=== PATIENT | female | born 1995 | race Hispanic/Latino ===

== ENCOUNTER 2017-07-12 06:47 | Inpatient (IN) | payer MEDICAID, OTHER, SELFPAY ==
[2017-07-17] MEDS: Lactated Ringer's 1,000 ML IV SCH (23:05)
[2017-07-17 23:16] VITALS: BMI 27.4
[2017-07-18] MEDS ORDERED: Acetaminophen 500 MG TAB PO PRN (00:06)
[2017-07-18] MEDS ORDERED: Ibuprofen 800 MG TAB PO PRN (00:06)
[2017-07-18] MEDS ORDERED: Lidocaine 1% (PF) 30 ML VIAL SC PRN (00:06)
[2017-07-18] MEDS ORDERED: Carboprost 250 MCG/ML AMP IM PRN (00:06)
[2017-07-18] MEDS ORDERED: Misoprostol 200 MCG TAB PR PRN (00:06)
[2017-07-18] MEDS ORDERED: Methylergonovine 0.2 MG/ML VIAL IM PRN (00:06)
[2017-07-18] MEDS ORDERED: Ondansetron HCl/PF 4 MG/2 ML Vial IVP PRN (00:06)
[2017-07-18] MEDS ORDERED: Promethazine HCl 25 MG/ML VIAL IM PRN (00:06)
[2017-07-18] MEDS ORDERED: LR / Pitocin 40 units/1000 ml 1,000 ML IV PRN (00:06)
[2017-07-18] MEDS ORDERED: Diphenoxylate HCl/Atropine Tablet PO PRN (00:06)
[2017-07-18] MEDS: LR 500 ML/Oxytocin 10 units 500 ML IV SCH ×2 (00:40→10:41)
--- NOTE | 2017-07-18 00:40 | PDOC.LDHP ---
Labor and Delivery H&P Chief complaint: scheduled induction HPI: 22 yo @ 40.6wks by a 10wk US presents for IOL 2/2 post dates. She is complaining of irregular contractions, otherwise denies vaginal bleeding, fluid loss, new discharge. Current gestational age (weeks): 40 (40.6) Due date: 07/12/17 Dating criteria: first trimester ultrasound (10wks) Grav: 4 Para: 1 (1021) OB History Details: Prior delivery , no complications, did require pitocin hx of 2 spontaneous abortions Current complications: other (anemia of ) Abnormal US findings: No Past Medical History: none Current medications: pre-fredis vitamins, iron Previous surgical history: none Social history: none - Physical Exam Vital signs reviewed and normal: yes General: NAD, resting Heart: RRR Lungs: CTAB Abdomen: gravid Extremeties: no edema FHT: category 1 (accels present) [place] contractions every: 4-5 minutes - Vaginal Exam cm dilated: 3 Effacement: 75% Station: -3 - OB Labs HIV: negative RPR: negative 1 hour GCT: positive 3 hour GTT: negative GBS: negative - Assessment L&D Assessment: medically indicated induction - Plan Plan: admit to L&D -: 22 yo @ 40.6wks by a 10wk US presents to L&D for IOL 2/2 postdates, admitted for induction with pitocin (queen score of 6). Plan: 1.)IOL 2/2 postdates-We will admit Mrs. Orozco to L&D and start pitocin and titrate as tolerated. We will do serial labor checks. We will also order a cbc, hepatitis B antigen, Rubella, and blood type and antibody. 2.)sIUP-same as above 3.)Anemia of -continue iron PO. Allergies/Adverse Reactions: Allergies Allergy/AdvReac Type Severity Reaction Status Date / Time No Known Allergies Allergy Unverified 07/18/17 00:14
[2017-07-18 01:41] LABS: Hemoglobin 12.2 g/dL (12.0-16.0); Mean Corpuscular HGB CONC 35.8 g/dL (32.0-36.0); Mean Corpuscular Hemoglobin 31.7 pg (27.0-31.0); Mean Corpuscular Volume 88.4 fl (81.0-99.0); Mean Platelet Volume 9.4 fL (7.4-10.4); Platelet Count 187 thou/uL (130-400); RBC Distribution Width 13.6 % (11.5-14.5); Red Blood Cell (RBC) Count 3.84 mill/uL (4.20-5.40); White Blood Cell (WBC) Count 7.6 thou/uL (4.8-10.8)
[2017-07-18 02:07] LABS: HBSAg Index 0.48 S/CO (0-0.99); Hep B Surf Ag Non-Reactive S/CO (NonReactive)
--- NOTE | 2017-07-18 03:11 | PDOC.LDPN ---
Labor & Delivery Progress Note - Subjective Subjective: comfortable, other (22 yo @ 41 wks here for IOL 2/2 to post dates.) - Objective Vital signs reviewed and normal: yes General: NAD, resting SVE: 4 Effacement: 75% Station: -3 FHT: category 1 (+accels) [place] contractions every: 2 minutes - Assessment (1) Encounter for induction of labor Code(s): Z34.90 - ENCNTR FOR SUPRVSN OF NORMAL , UNSP, UNSP TRIMESTER Current Visit: Yes Status: Acute (2) Post-dates Code(s): O48.0 - POST-TERM Current Visit: Yes Status: Acute Plan: continue plan of care, pitocin for augmentation, other (Continue labor checks q2h. Continue pitocin, titrate as tolerable.)
[2017-07-18 05:24] LABS: Syphilis Antibody Nonreactive (Nonreactive); Syphilis Antibody Index 0.03 S/CO (<1.00 Non-Reactive)
[2017-07-18] MEDS: Lactated Ringer's 1,000 ML IV SCH (06:36)
--- NOTE | 2017-07-18 08:18 | PDOC.LDPN ---
Labor & Delivery Progress Note - Subjective Subjective: painful contractions - Objective Vital signs reviewed and normal: yes General: resting, breathing through contractions Uterine fundus: non tender Dilation: 4 Effacement: 75% Station: -3 FHT: category 1, variability present, absent or minimal variables [place] contractions every: 2-3 - Assessment (1) Encounter for induction of labor Code(s): Z34.90 - ENCNTR FOR SUPRVSN OF NORMAL , UNSP, UNSP TRIMESTER Current Visit: Yes Status: Acute Comment: Continue IOL -Cat 1 strip -Pitocin currently at 20 -Membranes intact, consider AROM at next check if no progress is made -Pt does not currently want medication for pain control (2) Post-dates Code(s): O48.0 - POST-TERM Current Visit: Yes Status: Acute Comment: Continue induction as above Plan: labor augmentation, pitocin for augmentation <Ludwig Hernandez - Last Filed: 07/18/17 08:15> Attending Addendum - Attending Addendum Date/Time: 07/18/171827 I personally evaluated the patient and discussed the management with Dr. Hernandez I agree with the History, Examination, Assessment and Plan documented above with any addition or exceptions noted below. Will AROM at next SVE and place IUPC. Delilah <Ashlyn Zaragoza - Last Filed: 07/18/17 18:30>
[2017-07-18] MEDS ORDERED: Fentanyl 100 MCG/2 ML VIAL ONE (12:43)
[2017-07-18] MEDS ORDERED: Fentanyl 100 MCG/2 ML VIAL SLOW IVP SCH (14:30)
[2017-07-18] MEDS ORDERED: Adacel (T-DAP) 0.5 ML VIAL IM ONE (16:21)
[2017-07-18] MEDS ORDERED: Bisacodyl 10 MG SUPP PR PRN (16:21)
[2017-07-18] MEDS ORDERED: LR / Pitocin 40 units/1000 ml 1,000 ML IV SCH (16:21)
[2017-07-18] MEDS ORDERED: Acetaminophen/Codeine 30-300mg Tablet PO PRN (16:21)
[2017-07-18] MEDS ORDERED: Benzocaine/Menthol 20-0.5% 60 ML CAN TOP PRN (16:21)
[2017-07-18] MEDS ORDERED: Lanolin Ointment 7 GM TUBE TOP PRN (16:21)
[2017-07-18] MEDS ORDERED: Milk Of Magnesia 30 ML UDCUP PO PRN (16:21)
[2017-07-18] MEDS: Ferrous Sulfate 325 MG TAB PO SCH (16:55)
[2017-07-18] MEDS ORDERED: FLU VACC QS2017-18 36 mo. & older 0.5 ML SYRINGE IM ONE (17:45)
--- NOTE | 2017-07-18 18:34 | PDOC.LDPN ---
Labor & Delivery Progress Note - Subjective Subjective: painful contractions (breathing through) - Objective Vital signs reviewed and normal: yes General: breathing through contractions Uterine fundus: palpable contractions Dilation: 6 Effacement: 90% Station: -1 FHT: category 1 [place] contractions every: q 2 min Procedures: AROM with IUPC and FSE placement ( bradycardia with rupture) AROM: clear fluid IUPC placed: yes FSE placed: yes Resuscitative measures: maternal position change ( bradycardia resolved with stimulation and maternal position change) - Assessment (1) Encounter for induction of labor Code(s): Z34.90 - ENCNTR FOR SUPRVSN OF NORMAL , UNSP, UNSP TRIMESTER Current Visit: Yes Status: Acute Comment: 22 yo female at 40.6 wks here for an elective IOL. AROM with IUPC and FSE placement. Continue pitocin per protocol. Expecting vaginal delivery soon. (2) Glucose intolerance of Code(s): O99.810 - ABNORMAL GLUCOSE COMPLICATING Current Visit: Yes Status: Acute Comment: Failed 1 hour gtt. Possible LGA infant. Wt gain for less than 20 lbs. Plan: continue plan of care, pitocin for augmentation -: Delilah
[2017-07-18] MEDS: Ibuprofen 800 MG TAB PO SCH (18:49)
[2017-07-18] MEDS: Docusate Calcium (SURFAK) 240 MG CAP PO SCH (22:25)
[2017-07-19] MEDS: Lactated Ringer's 1,000 ML IV SCH (01:46)
[2017-07-19] MEDS: Ibuprofen 800 MG TAB PO SCH ×5 (02:30→21:10)
[2017-07-19 05:45] LABS: Hemoglobin 8.2 g/dL (12.0-16.0); Mean Corpuscular HGB CONC 34.2 g/dL (32.0-36.0); Mean Corpuscular Hemoglobin 30.8 pg (27.0-31.0); Mean Corpuscular Volume 89.9 fl (81.0-99.0); Mean Platelet Volume 8.6 fL (7.4-10.4); Platelet Count 135 thou/uL (130-400); RBC Distribution Width 13.3 % (11.5-14.5); Red Blood Cell (RBC) Count 2.67 mill/uL (4.20-5.40); White Blood Cell (WBC) Count 10.4 thou/uL (4.8-10.8)
--- NOTE | 2017-07-19 07:10 | PDOC.PP ---
Post Progress Note Post Day #: 1 Subjective: 22 yo delivered at 40.6 via complicated by 2nd deg perineal lac and PPH (EBL 1000mL). Pt states that she feels well today. She denies dizziness/ lightheadedness. Her bleeding is similar to a menstrual cycle. She denies abdominal pain or breast pain. PO intake tolerated: yes Flatus: no Ambulation: yes Vital Signs (12 hours) Temp Pulse Resp BP Pulse Ox 07/19/17 04:30 98.4 F 78 18 101/53 L 07/18/17 23:55 97.9 F 70 18 107/51 L 07/18/17 20:27 98.7 F 68 18 109/52 L 98 Weight Weight 72.575 kg - Physical Examination General: NAD Cardiovascular: no m/r/g, RRR Respiratory: clear to auscultation bilaterally, non-labored breathing Abdominal: + bowel sounds, lochia, no distention, appropriately TTP Fundus firm & at: U -3 Extremities: negative homans (B) Neurological: no gross focal deficits Psychiatric: A&Ox3, normal affect Result Diagrams: 07/19/17 05:20 Additional Labs: Post Labs Blood Type O POSITIVE 07/17/17 23:05 Hep Bs Antigen Non-Reactive S/CO (NonReactive) 07/17/17 23:05 (1) Term delivered Code(s): O80 - ENCOUNTER FOR FULL-TERM UNCOMPLICATED DELIVERY Status: Acute Comment: Pt doing well overall. Her Hb this morning is 8.2 which is not unexpected given PPH and IVF post . Pt had one PP check yesterday evening with moderate blood loss, however it has been scant since. Continue to monitor vitals and Hb in the am. Otherwise routine post care (2) Encounter for induction of labor Code(s): Z34.90 - ENCNTR FOR SUPRVSN OF NORMAL , UNSP, UNSP TRIMESTER Status: Resolved (3) Post-dates Code(s): O48.0 - POST-TERM Status: Resolved <Ludwig Hernandez - Last Filed: 07/19/17 07:12> Vital Signs (12 hours) Temp Pulse Resp BP 07/19/17 11:49 98.2 F 85 16 114/57 L 07/19/17 08:00 97.7 F 77 18 105/51 L 07/19/17 04:30 98.4 F 78 18 101/53 L Weight Weight 72.575 kg Result Diagrams: 07/19/17 05:20 Additional Labs: Post Labs Blood Type O POSITIVE 07/17/17 23:05 Hep Bs Antigen Non-Reactive S/CO (NonReactive) 07/17/17 23:05 Rubella IgG Antibody 1.56 index (Immune >0.99) 07/17/17 23:05 (1) Encounter for induction of labor Code(s): Z34.90 - ENCNTR FOR SUPRVSN OF NORMAL , UNSP, UNSP TRIMESTER Status: Resolved (2) Glucose intolerance of Code(s): O99.810 - ABNORMAL GLUCOSE COMPLICATING Status: Acute Comment: Failed 1 hour gtt. Possible LGA infant. Wt gain for less than 20 lbs. <Ashlyn Zaragoza - Last Filed: 07/19/17 15:29> Attending Addendum - Attending Addendum Date/Time: 07/19/17 4630 I personally evaluated the patient and discussed the management with Dr. Hernandez I agree with the History, Examination, Assessment and Plan documented above with any addition or exceptions noted below. 22 yo female s/p on 07/18/17 complicated by PPH PPD#1 Doing well. Notes vaginal edema. Lochia has been mild. Voiding and ambulating well. . Pain controlled. NAD. RRR. Systolic flow murmur. CTA bilaterally. Uterus firm, nontender, -2 below the umbilicus. FROM. No edema. 1. s/p : Continue routine care. Likely d/c to home in AM. 2. PPH: Continue supplemental iron. Asymptomatic. Monitor vital signs. 3. Contraception: Unsure. 4. . ABrayMD <Ashlyn Zaragoza - Last Filed: 07/19/17 15:29>
--- NOTE | 2017-07-19 07:36 | PDOC.OPDEL ---
OB Operative/Delivery Note Delivery Dr/Surgeon: Hugo Hernandez Turtle, Bray Pre-Delivery Diagnosis: active labor, ruptured membrane Procedure/Post Delivery Dx: spontaneous vaginal delivery Weeks gestation: 40 (40.6) Anesthesia: local (For lac repair) - Findings A Sex: female Weight: 4216 kg - 1 min: 8 - 5 min: 9 - Additional Findings/Plan Placenta delivered: manual removal Repaired Obstetrical Laceration: 2nd degree Estimated blood loss: 1000 Compilations/Other Findings: Following uneventful antepartum course a vigorous female was delivered in the ZEYAD position. Anterior shoulder then the remainder of the body delivered. No nuchal cord. The head was held down and mouth/nares bulb suctioned. Cord was clamped and cut after cessation of pulsation. Placenta was delivered intact with 3 vessel cord after manual extraction due to delayed delivery. Fundal massage was performed and the fundus was firm. Heavy blood loss was noted at the time and 800 mg of cytotec was placed rectally in addition to pitocin IV. Bleeding was well controlled after administration of medicines and repair of laceration. Cervix was free of lacerations. There was a 2nd degree perineal laceration that ws repaired with 2-0 vicryl in the usual fasion with good approximation and hemostasis after 10 mL of 1% lidocaine was injected at the site. Infant went o the nursery in good condition for routeine care. Patient tolerated delivery well and went to post after and additional 1L of LR IV and assurance of cessation of bleeding. Post delivery plan: routine recovery <Ludwig Hernandez - Last Filed: 07/19/17 07:34> Attending Addendum - Attending Addendum Date/Time: 07/19/17 1532 I personally evaluated and partiscipated in the procedure and discussed the management with Dr. Hernandez I agree with the documentation above. However, placenta was expressed spontaneously. Not manually. EBL 1000 ABrayMD <Ashlyn Zaragoza - Last Filed: 07/19/17 15:33>
[2017-07-19] MEDS: Prenatal Vitamin 1 TAB PO SCH (08:29)
[2017-07-19] MEDS: Docusate Calcium (SURFAK) 240 MG CAP PO SCH ×2 (08:29→21:09)
[2017-07-19] MEDS: Ferrous Sulfate 325 MG TAB PO SCH ×3 (08:30→18:14)
[2017-07-19] MEDS ORDERED: Ibuprofen 800 MG TAB PO SCH (22:00)
[2017-07-20] MEDS: Ibuprofen 800 MG TAB PO SCH (05:28)
--- NOTE | 2017-07-20 08:09 | PDOC.PP ---
Post Progress Note Post Day #: 2 Subjective: 22 yo s/p complicated by 2nd deg perineal lac and PPH (EBL 1000 mL) . Post course has been uneventful thus far. Pt has no specific complaints. She denies abdominal pain, fever, chest pain, SOB, dizziness, or breast pain. She admits to passage of 1 small clot yesterday, non since. Blood per vagina is less than a typical period. PO intake tolerated: yes Flatus: yes Ambulation: yes Weight Weight 72.575 kg - Physical Examination General: NAD Cardiovascular: RRR Deviation from normal: Systolic murmur Respiratory: clear to auscultation bilaterally Abdominal: + bowel sounds, lochia, no distention Fundus firm & at: u-3, firm Extremities: negative homans (B) Psychiatric: A&Ox3 Result Diagrams: 07/19/17 05:20 Additional Labs: Post Labs Blood Type O POSITIVE 07/17/17 23:05 Hep Bs Antigen Non-Reactive S/CO (NonReactive) 07/17/17 23:05 Rubella IgG Antibody 1.56 index (Immune >0.99) 07/17/17 23:05 (1) Term delivered Code(s): O80 - ENCOUNTER FOR FULL-TERM UNCOMPLICATED DELIVERY Status: Acute Comment: Pt continues to have uneventful post course. No signs or symptoms of symptomatic anemia. Continued scant blood loss and normal lochia. Otherwise routine post care. ready to dc today (2) Encounter for induction of labor Code(s): Z34.90 - ENCNTR FOR SUPRVSN OF NORMAL , UNSP, UNSP TRIMESTER Status: Resolved (3) Post-dates Code(s): O48.0 - POST-TERM Status: Resolved <Ludwig Hernandez - Last Filed: 07/20/17 08:03> Vital Signs (12 hours) Temp Pulse Resp BP 07/20/17 08:46 98.0 F 69 18 109/55 L Weight Weight 72.575 kg Result Diagrams: 07/19/17 05:20 Additional Labs: Post Labs Blood Type O POSITIVE 07/17/17 23:05 Hep Bs Antigen Non-Reactive S/CO (NonReactive) 07/17/17 23:05 Rubella IgG Antibody 1.56 index (Immune >0.99) 07/17/17 23:05 (1) Encounter for induction of labor Code(s): Z34.90 - ENCNTR FOR SUPRVSN OF NORMAL , UNSP, UNSP TRIMESTER Status: Resolved (2) Glucose intolerance of Code(s): O99.810 - ABNORMAL GLUCOSE COMPLICATING Status: Acute Comment: Failed 1 hour gtt. Possible LGA . Wt gain for less than 20 lbs. <Ashlyn Zaragoza - Last Filed: 07/20/17 12:06> Attending Addendum - Attending Addendum Date/Time: 07/20/17 1203 I personally evaluated the patient and discussed the management with Dr. Hernandez I agree with the History, Examination, Assessment and Plan documented above with any addition or exceptions noted below. 22 yo female s/p on 07/18/17 complicated by PPH PPD#2 Doing well. Notes vaginal edema has improved. Lochia has been mild. Reports passage of moderate sized clot yesterday but none since that time. Asymptomatic. Voiding and ambulating well. Breast feeding. Pain controlled. Requesting d/c today. NAD. RRR. Systolic flow murmur. CTA bilaterally. Uterus firm, nontender, -3 below the umbilicus. FROM. No edema. 1. s/p : Continue routine care. Will d/c to home this afternoon as long as patient remains stable. Follow up with [facility]NC in 1 to 2 wks. 2. PPH: Continue supplemental iron. Asymptomatic. Monitor vital signs. 3. Contraception: Unsure. 4. . ABrayMD <Ashlyn Zaragoza - Last Filed: 07/20/17 12:06>
[2017-07-20 08:48] VITALS: BP 109/55; TEMP 98
[2017-07-20] MEDS: Prenatal Vitamin 1 TAB PO SCH (09:06)
[2017-07-20] MEDS: Docusate Calcium (SURFAK) 240 MG CAP PO SCH (09:07)
[2017-07-20] MEDS: Ferrous Sulfate 325 MG TAB PO SCH (09:07)
== END 2017-07-20 12:40 | disposition home or self-care (01) | DRG 774 ==
LOC: L&D 07-17 22:39 → 3SW 07-18 16:51
PROVIDERS: ADMIT Family Medicine; ATTEND Family Medicine
PROC: 10E0XZZ Delivery of Products of Conception, External Approach (ICD-10-PCS; principal; 2017-07-18)
PROC: 0KQM0ZZ Repair Perineum Muscle, Open Approach (ICD-10-PCS; 2017-07-18)
PROC: 10907ZC Drainage of Amniotic Fluid, Therapeutic from Products of Conception, Via Natural or Artificial Opening (ICD-10-PCS; 2017-07-18)
PROC: 3E033VJ Introduction of Other Hormone into Peripheral Vein, Percutaneous Approach (ICD-10-PCS; 2017-07-18)
PROC: 10H07YZ Insertion of Other Device into Products of Conception, Via Natural or Artificial Opening (ICD-10-PCS; 2017-07-18)
DX: O48.0 Post-term pregnancy (principal); O72.1 Other immediate postpartum hemorrhage; O99.814 Abnormal glucose complicating childbirth; O70.1 Second degree perineal laceration during delivery; Z37.0 Single live birth; O99.02 Anemia complicating childbirth; Z3A.40 40 weeks gestation of pregnancy; O67.9 Intrapartum hemorrhage, unspecified; O12.04 Gestational edema, complicating childbirth
CPT/HCPCS: 36415; 51701; 76815; 85027; 86762; 86780; 87340; J2001; J2405; J3010; J7120

== ENCOUNTER 2018-11-14 10:05 | Outpatient (CLI) | payer OTHER ==
--- NOTE | 2018-11-14 11:16 | ULT ---
EXAM: US OB Complete STANDARD PROVIDED CLINICAL HISTORY: anatomy COMPARISON: None FINDINGS: A single live intrauterine gestation is documented in transverse presentation with heart rate of 144 bpm. The placenta is anterior/left in location without evidence for previa. Cervical length appears adequate. Estimated gestational age based on today's examination is 23 weeks 1 day. Estimated w eight is 557 g +/- 82 g. Amniotic fluid index is 14.5. Standard anatomic survey demonstrates a normal appearance to the head, cerebellum, heart, stomach, kidneys, umbilical cord and cord inserti on, bladder, spine, and extremities. biometry: BPD: 23 weeks 2 days 5.65 cm Head circumference: 23 weeks 3 days 21.3 cm Abdominal circumference: 22 weeks 5 days 17.9 cm Femur length 23 weeks 2 days 4.1 cm IMPRESSION: Single live intrauterine gestation, 23 weeks 1 day by ultrasound.
== END 2018-11-14 10:06 | disposition home or self-care (01) ==
LOC: SCSULT 10:05
PROVIDERS: ATTEND Family Medicine
DX: O09.892 Supervision of other high risk pregnancies, second trimester (principal); Z3A.23 23 weeks gestation of pregnancy
CPT/HCPCS: 76805

== ENCOUNTER 2019-03-01 19:15 | Inpatient (IN) | payer OTHER, SELFPAY ==
[2019-03-09 07:31] VITALS: BMI 29.1
[2019-03-09] MEDS ORDERED: Diphenoxylate HCl/Atropine Tablet PO PRN (07:41)
[2019-03-09] MEDS ORDERED: Ondansetron PF 4 MG/2 ML Vial IVP PRN ×2 (07:41→13:48)
[2019-03-09] MEDS ORDERED: HYDROcodone/Acetaminophen 5/325 mg Tablet PO PRN ×3 (07:41→13:48)
[2019-03-09] MEDS ORDERED: Misoprostol 200 MCG TAB PR PRN (07:41)
[2019-03-09] MEDS ORDERED: Carboprost 250 MCG/ML AMP IM PRN (07:41)
[2019-03-09] MEDS ORDERED: Lidocaine 1% (PF) 30 ML VIAL SC PRN (07:41)
[2019-03-09] MEDS ORDERED: hydrALAZINE 20 MG/ML VIAL SLOW IVP PRN ×2 (07:41→13:48)
[2019-03-09] MEDS ORDERED: NS w/ Oxytocin 10 units 500 ML IV SCH ×2 (07:41)
[2019-03-09] MEDS ORDERED: NS / Oxytocin 40 units/1000ml 1,000 ML IV PRN (07:41)
[2019-03-09] MEDS ORDERED: Butorphanol Tartrate 1 MG/ML VIAL SLOW IVP PRN (07:41)
[2019-03-09] MEDS ORDERED: Promethazine HCl 25 MG/ML VIAL IM PRN ×2 (07:41→13:48)
[2019-03-09] MEDS ORDERED: Ibuprofen 800 MG TAB PO PRN (07:41)
[2019-03-09] MEDS ORDERED: NS w/ Oxytocin 10 units 500 ML ONE (07:43)
[2019-03-09] MEDS: Lactated Ringer's 1,000 ML IV SCH ×3 (07:59→20:26)
[2019-03-09 08:25] LABS: Hemoglobin 11.2 g/dL (12.0-16.0); Mean Corpuscular HGB CONC 34.3 g/dL (32.0-36.0); Mean Corpuscular Volume 84.7 fL (78.0-98.0); Mean Platelet Volume 9.8 fL (7.4-10.4); Platelet Count 173 thou/uL (130-400); RBC Distribution Width 12.8 % (11.5-14.5); Red Blood Cell (RBC) Count 3.86 mill/uL (4.20-5.40)
[2019-03-09 09:03] LABS: HBSAg Index 0.17 S/CO (0-0.99); Hep B Surf Ag Non-Reactive S/CO (NonReactive); Syphilis Antibody Nonreactive (Nonreactive); Syphilis Antibody Index 0.03 S/CO (<1.00 Non-Reactive)
[2019-03-09] MEDS ORDERED: Adacel (T-DAP) 0.5 ML SYRINGE IM ONE (13:48)
[2019-03-09] MEDS ORDERED: Bisacodyl 10 MG SUPP PR PRN (13:48)
[2019-03-09] MEDS ORDERED: diphenhydrAMINE 25 MG CAP PO PRN (13:48)
[2019-03-09] MEDS ORDERED: NS / Oxytocin 40 units/1000ml 1,000 ML IV SCH (13:48)
[2019-03-09] MEDS ORDERED: Milk Of Magnesia 30 ML UDCUP PO PRN (13:48)
[2019-03-09] MEDS ORDERED: Lanolin Ointment 7 GM TUBE TOP PRN (13:48)
[2019-03-09] MEDS ORDERED: Benzocaine-Menthol 82.5 ML CAN TOP PRN (13:48)
[2019-03-09] MEDS: Ibuprofen 800 MG TAB PO SCH ×2 (14:29→21:43)
[2019-03-09] MEDS ORDERED: Methylergonovine 0.2 MG/ML VIAL ONE (16:08)
[2019-03-09] MEDS ORDERED: Misoprostol 200 MCG TAB ONE (16:08)
[2019-03-09] MEDS: Misoprostol 200 MCG TAB PO SCH ×2 (16:11→21:46)
[2019-03-09] MEDS: Docusate Calcium (SURFAK) 240 MG CAP PO SCH (21:43)
[2019-03-09] MEDS: Ferrous Sulfate 325 MG TAB PO SCH (21:43)
[2019-03-10] MEDS ORDERED: Diphenoxylate HCl/Atropine Tablet PO PRN (02:12)
[2019-03-10] MEDS: Misoprostol 200 MCG TAB PO SCH (04:23)
[2019-03-10] MEDS: Ibuprofen 800 MG TAB PO SCH ×2 (04:45→14:14)
[2019-03-10 06:20] LABS: Mean Corpuscular HGB CONC 34.1 g/dL (32.0-36.0); Mean Corpuscular Hemoglobin 29.1 pg (27.0-31.0); Mean Corpuscular Volume 85.2 fL (78.0-98.0); Mean Platelet Volume 9.5 fL (7.4-10.4); Platelet Count 131 thou/uL (130-400); RBC Distribution Width 12.8 % (11.5-14.5); Red Blood Cell (RBC) Count 2.76 mill/uL (4.20-5.40); White Blood Cell (WBC) Count 9.5 thou/uL (4.8-10.8)
[2019-03-10] MEDS: Docusate Calcium (SURFAK) 240 MG CAP PO SCH (09:36)
[2019-03-10] MEDS: Ferrous Sulfate 325 MG TAB PO SCH ×2 (09:37→17:43)
[2019-03-10] MEDS: Prenatal Vitamin 1 TAB PO SCH ×2 (09:37→09:38)
[2019-03-10 12:02] VITALS: BP 114/57; TEMP 97.8
[2019-03-11] MEDS ORDERED: FLU VACC QS2019-20(6MOS UP)/PF 60 MCG/0.5 ML SYRINGE IM ONE (09:00)
== END 2019-03-10 18:45 | disposition home or self-care (01) | DRG 806 ==
LOC: L&D 03-09 06:23 → 3SW 03-09 21:11
PROVIDERS: ADMIT Family Medicine; ATTEND Family Medicine
PROC: 10E0XZZ Delivery of Products of Conception, External Approach (ICD-10-PCS; principal; 2019-03-09)
PROC: 0HQ9XZZ Repair Perineum Skin, External Approach (ICD-10-PCS; 2019-03-09)
PROC: 10907ZC Drainage of Amniotic Fluid, Therapeutic from Products of Conception, Via Natural or Artificial Opening (ICD-10-PCS; 2019-03-09)
PROC: 3E033VJ Introduction of Other Hormone into Peripheral Vein, Percutaneous Approach (ICD-10-PCS; 2019-03-09)
DX: O48.0 Post-term pregnancy (principal); O72.1 Other immediate postpartum hemorrhage; Z37.0 Single live birth; O70.0 First degree perineal laceration during delivery; Z3A.40 40 weeks gestation of pregnancy
CPT/HCPCS: 36415; 85027; 86780; 86850; 86900; 86901; 87340; 90471; 90686; 90715; G0008; J2210; J2405; J2590